=== PATIENT | female | born 1960 | race Hispanic/Latino ===

== ENCOUNTER 2024-06-12 02:31 | Emergency (ER) | payer MEDICARE ==
[~2024-06-12] VITALS: Ht 152.4 cm; Wt 81.6 kg
[2024-06-12 02:39] VITALS: PULSE 63; RESP 18; TEMP 97.5
[2024-06-12] MEDS ORDERED: TYLENOL325 MG PO (02:57)
[2024-06-12] MEDS ORDERED: KETOROLAC TROME10 MG PO (02:57)
[2024-06-12] MEDS ORDERED: ONDANSETRON ODT4 MG PO (02:57)
[2024-06-12] MEDS ORDERED: CEFDINIR300 MG PO (02:57)
[2024-06-12] MEDS ORDERED: PYRIDIUM100 MG PO (02:57)
[2024-06-12] MEDS: ONDANSETRON HCL INJ 2MG/ML 2ML 2 MG/ML VIAL IV ONE (03:17)
[2024-06-12] MEDS: SODIUM CHLORIDE 0.9% 1000ML 1,000 ML IV STA (03:17)
[2024-06-12] MEDS: ACETAMINOPHEN 325 MG TAB PO STA (03:18)
[2024-06-12] MEDS: KETOROLAC TROMETHAMINE 30 MG/ML VIAL IV STA (03:41)
[2024-06-12 04:28] VITALS: BP 145/72; PULSE 62; RESP 18; TEMP 98; O2SAT 97
== END 2024-06-12 04:27 | disposition home or self-care (01) ==
LOC: FSED 02:36
DX: R30.0 Dysuria (principal); N12 Tubulo-interstitial nephritis, not specified as acute or chronic; N30.90 Cystitis, unspecified without hematuria; R53.81 Other malaise; I10 Essential (primary) hypertension
CPT/HCPCS: 74176; 80053; 81003; 85025; 87086; 87186; 96374; 99284; J0696; J1885; J2405; J7030